=== PATIENT | female | born 1985 | race Caucasian/White ===

== ENCOUNTER 2018-01-02 08:47 | Emergency (ER) | payer MEDICAID ==
[~2018-01-02] VITALS: Ht 170.2 cm; Wt 74.8 kg
[2018-01-02 08:54] VITALS: BP_SYST 130
[2018-01-02] MEDS ORDERED: NACL 0.9% 1,000 ML IV ONE (09:08)
[2018-01-02] MEDS ORDERED: DIPHENHYDRAMINE INJ 50 MG/ML VIAL IVP ONE (09:15)
[2018-01-02 09:37] LABS: BASOPHILS % (AUTO) 0.1 % (0.0-2.0); EOSINOPHILS % (AUTO) 0.3 % (0.0-4.0); HEMATOCRIT 42.6 % (36-48); HEMOGLOBIN 14.2 g/dL (12.0-16.0); LYMPHOCYTES # (AUTO) 1.1 K/uL (1.0-5.5); LYMPHOCYTES % (AUTO) 16.5 % (20.5-51.5); MEAN CORPUSCULAR HEMOGLOBIN 31 pg (27-31); MEAN CORPUSCULAR HGB CONC 33 % (32-36); MEAN CORPUSCULAR VOLUME 95 fL (79.0-98.0); MONOCYTES # (AUTO) 0.6 K/uL (0.0-1.0); MONOCYTES % (AUTO) 8.3 % (1.7-9.3); NEUTROPHILS % (AUTO) 74.8 % (40.0-70.0); PLATELET COUNT (AUTO) 333 K/uL (130-430); RED BLOOD CELL COUNT(AUTO) 4.51 MIL/uL (4.2-6.2); RED CELL DISTRIBUTION WIDTH 12.3 % (9.0-15.0); WHITE BLOOD COUNT (AUTO) 6.7 K/uL (4.8-10.8)
[2018-01-02 09:47] LABS: CALCIUM 9.5 mg/dL (8.4-11.0); CREATININE 0.82 mg/dL (0.55-1.30); POTASSIUM 3.8 mmol/L (3.5-5.1)
[2018-01-02 09:52] LABS: ALBUMIN 4.6 g/dL (3.4-4.8); TOTAL BILIRUBIN 0.6 mg/dL (0.0-1.0)
[2018-01-02] MEDS ORDERED: methylPREDNISolone SOD SUCC/PF 62.5 MG/ML VIAL IVP ONE (11:00)
[2018-01-02 12:02] VITALS: BP_SYST 128
== END 2018-01-02 12:02 | disposition home or self-care (01) ==
LOC: SED 08:47
DX: L50.9 Urticaria, unspecified (principal); R03.0 Elevated blood-pressure reading, without diagnosis of hypertension
CPT/HCPCS: 36415; 71045; 80053; 83690; 85025; 96361; 96374; 96375; 99285; J1200; J2930

== ENCOUNTER 2018-01-04 12:35 | Emergency (ER) | payer MEDICAID ==
[~2018-01-04] VITALS: Ht 170.2 cm; Wt 74.8 kg
[2018-01-04 12:38] VITALS: BP_SYST 125
[2018-01-04] MEDS ORDERED: FAMOTIDINE 20 MG TABLET PO ONE (13:15)
[2018-01-04] MEDS ORDERED: EPINEPHrine JECT 1 MG/10 ML SYR IM ONE (13:15)
[2018-01-04] MEDS ORDERED: ONDANSETRON 4 MG ODT TAB PO ONE (15:15)
[2018-01-04] MEDS ORDERED: ACETAMINOPHEN 325 MG TABLET PO ONE (15:30)
[2018-01-04 16:00] VITALS: BP_SYST 130
== END 2018-01-04 16:00 | disposition home or self-care (01) ==
LOC: SED 12:35
DX: T78.40XA Allergy, unspecified, initial encounter (principal); L50.9 Urticaria, unspecified; R03.0 Elevated blood-pressure reading, without diagnosis of hypertension; X58.XXXA Exposure to other specified factors, initial encounter
CPT/HCPCS: 96372; 99284; J0171; Q0162

== ENCOUNTER 2019-06-10 15:53 | Emergency (ER) | payer MEDICAID ==
[~2019-06-10] VITALS: Ht 170.2 cm; Wt 72.6 kg
[2019-06-10 15:55] VITALS: BP_SYST 154
[2019-06-10] MEDS ORDERED: IBUPROFEN 600 MG TABLET PO ONE (17:00)
[2019-06-10 17:27] VITALS: BP_SYST 142
== END 2019-06-10 17:27 | disposition home or self-care (01) ==
LOC: SED 15:53
DX: S90.121A Contusion of right lesser toe(s) without damage to nail, initial encounter (principal); W23.0XXA Caught, crushed, jammed, or pinched between moving objects, initial encounter; Y93.89 Activity, other specified; Y92.89 Other specified places as the place of occurrence of the external cause; Y99.9 Unspecified external cause status
CPT/HCPCS: 99283

== ENCOUNTER 2022-01-05 10:54 | Emergency (ER) | payer MEDICAID ==
[~2022-01-05] VITALS: Ht 167.6 cm; Wt 70.8 kg
--- NOTE | 2022-01-05 11:00 | NUR ---
PT CAME FROM HOME PLACED IN BED #3, CC OF RLQ ABDOMINAL PAIN SHARP IN NATURE, NON-RADIATING, NON-PROVOKED. PT HAS ONLY HX OF 2 C-SECTIONS. PT IS STABLE, NAD, VSS, AAOx4, AWAITING ED FOR ASSESSMENT
[2022-01-05 11:13] VITALS: BP_SYST 141
--- NOTE | 2022-01-05 11:20 | NUR ---
this instructional writer assess pt stated she has a throbbing pain llq abd abd soft nondistent last mense 12/10/2021 not sexual active, no n/v/d, no gi hx, no burning during urination, this sx started today overall appearances fair teaching started r/t plan of care, comfort and safety
--- NOTE | 2022-01-05 11:22 | NUR ---
physician at bedside
[2022-01-05 12:20] LABS: BASOPHILS % (AUTO) 0.6 % (0.0-2.0); EOSINOPHILS # (AUTO) 0.1 K/uL (0.0-0.4); EOSINOPHILS % (AUTO) 2.7 % (0.0-4.0); HEMATOCRIT 44.8 % (36-48); HEMOGLOBIN 14.9 g/dL (12.0-16.0); LYMPHOCYTES % (AUTO) 29.6 % (20.5-51.5); MEAN CORPUSCULAR HEMOGLOBIN 30 pg (27-31); MEAN CORPUSCULAR HGB CONC 33 % (32-36); MEAN CORPUSCULAR VOLUME 90 fL (79.0-98.0); MONOCYTES # (AUTO) 0.4 K/uL (0.0-1.0); MONOCYTES % (AUTO) 11.6 % (1.7-9.3); NEUTROPHILS # (AUTO) 1.9 K/uL (1.8-7.7); NEUTROPHILS % (AUTO) 55.5 % (40.0-70.0); PLATELET COUNT (AUTO) 277 K/uL (130-430); RED BLOOD CELL COUNT(AUTO) 4.97 MIL/uL (4.2-6.2); RED CELL DISTRIBUTION WIDTH 14.4 % (9.0-15.0); WHITE BLOOD COUNT (AUTO) 3.5 K/uL (4.8-10.8)
[2022-01-05 12:26] LABS: BILIRUBIN,URINE NEGATIVE (NEGATIVE); BLOOD, URINE NEGATIVE (NEGATIVE); CLARITY/URINE CLEAR (CLEAR); COLOR,URINE YELLOW (YELLOW); GLUCOSE,URINE NEGATIVE (NEGATIVE); KETONES,URINE NEGATIVE (NEGATIVE); LEUKOCYTE ESTERASE ,URINE 1+ (NEGATIVE); NITRITE, URINE NEGATIVE (NEGATIVE); PROTEIN URINE NEGATIVE (NEGATIVE); UROBILINOGEN,URINE 0.2 (0.2-1.0)
[2022-01-05 12:28] LABS: CALCIUM 9.3 mg/dL (8.4-11.0); CREATININE 0.8 mg/dL (0.55-1.30); POTASSIUM 4.2 mmol/L (3.5-5.1)
[2022-01-05] MEDS ORDERED: predniSONE 20 MG TABLET PO ONE (12:30)
[2022-01-05] MEDS ORDERED: DIAZEPAM 5 MG TABLET (VALIUM) PO ONE (12:30)
[2022-01-05 12:33] LABS: ALBUMIN 4.1 g/dL (3.4-4.8); TOTAL BILIRUBIN 0.2 mg/dL (0.0-1.0)
--- NOTE | 2022-01-05 13:30 | NUR ---
was med time one with prednisone and valium po denied allergies jodi med with effect no reactions noted meds were effective
[2022-01-05 13:40] LABS: HCG,QUAL RESULT NEGATIVE (NEGATIVE)
[2022-01-05 14:30] LABS: BACTERIA,URINE None Seen /HPF (None Seen); RBC,URINE 0-3 /HPF (0-3)
[2022-01-05] MEDS ORDERED: cephALEXin 500 MG CAPSULE PO ONE (15:00)
[2022-01-05] MEDS ORDERED: SIME125C PO (15:01)
[2022-01-05] MEDS ORDERED: CEPH-548 PO (15:01)
--- NOTE | 2022-01-05 15:19 | NUR ---
was given keflex earlier jodi well denied allergy
[2022-01-05] MEDS ORDERED: ONDANSETRON 4 MG ODT TAB PO ONE (15:30)
[2022-01-05 15:51] VITALS: BP_SYST 129
--- NOTE | 2022-01-05 15:55 | NUR ---
pt discharge to home condition stable denies pain/discomfort discharge teaching and prescriptions teaching voiced her understanding
== END 2022-01-05 15:55 | disposition home or self-care (01) ==
LOC: SED 10:54
DX: K59.00 Constipation, unspecified (principal); N39.0 Urinary tract infection, site not specified; M47.816 Spondylosis without myelopathy or radiculopathy, lumbar region
CPT/HCPCS: 36415; 74176; 76376; 80053; 81000; 81025; 83690; 84703; 85025; 99284; J7512; Q0162